=== PATIENT | male | born 1980 | race Caucasian/White ===

== ENCOUNTER 2021-02-16 17:24 | Emergency (ER) | payer OTHER, SELFPAY ==
[2021-02-16 17:44] VITALS: BP 105/69; PULSE 84; RESP 18; TEMP 37.2; O2SAT 97; BMI 18.7
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
[2021-02-16 18:17] VITALS: BP 96/64; PULSE 84; RESP 18; O2SAT 97
[2021-02-16 18:21] LABS: Basophils % 0.3 %; Eosinophils % 0.1 %; Hemoglobin 12.4 g/dL (11.7-16.6); Lymphocytes # 1.2 10^3/uL (0.8-4.8); Mean Corpuscular HGB Conc 32.6 g/dL (30.0-36.0); Mean Corpuscular Hemoglobin 28.7 pg (28.0-34.0); Monocytes # 0.7 10^3/uL (0.2-0.9); Monocytes % 5.7 %; Neutrophils # 11.01 10^3/uL (1.8-7.7); Neutrophils % 84.4 %; Nucleated Red Blood Cells % 0 %; Platelet Count 196 10^3/cmm (130-400); Red Blood Count 4.32 10^6/uL (4.1-5.3); Red Cell Distribution Width 12.9 % (12.1-15.1)
[2021-02-16 18:36] LABS: INR 1.05 (0.8-1.2)
[2021-02-16 18:42] LABS: Alanine Aminotransferase 16 U/L (0-41); Albumin Level 4.4 g/dL (3.5-5.2); Alkaline Phosphatase 57 IU/L (40-130); Anion Gap 12.8 (5-19); Aspartate Amino Transferase 23 U/L (0-40); Blood Urea Nitrogen 11 mg/dL (6-20); Calcium 8.3 mg/dL (8.5-10.5); Carbon Dioxide 28 mmol/L (22-29); Chloride 103 mmol/L (98-107); Globulin 2.1 g/dL (1.3-4.6); Glomerular Filtration Rate 92.5 mL/min (90-130); Glucose 92 mg/dL (65-115); Osmolality Calculated 289 mOsm/kg (285-295); Potassium 3.8 mmol/L (3.5-5.1); Sodium 140 mmol/L (136-145); Total Bilirubin 0.2 mg/dL (0.15-1.2); Total Protein 6.5 g/dL (6.6-8.7)
--- NOTE | 2021-02-16 19:11 | XRR_ITS ---
PROCEDURE INFORMATION: Exam: XR Right Hip Exam date and time: 02/16/2021 7:11 PM Age: 40 years old Clinical indication: Pelvic pain; Additional info: ? Fracture, trauma TECHNIQUE: Imaging protocol: XR Right hip. Views: 1 view hip with pelvis when performed. COMPARISON: CR (LOW EXM, ) 02/16/2021 6:20 PM FINDINGS: Bones/joints: Unremarkable. No acute fracture. No fracture identified in the right pubic symphysis. Soft tissues: Unremarkable. XR/XR hip RT 2-3V wo/w pel* [id number] IMPRESSION: No acute findings. Radiation Dose CTDIVOL = (mGy): DLP = (mGy-cm)
--- NOTE | 2021-02-16 19:11 | XRR_ITS ---
PROCEDURE INFORMATION: Exam: XR Right Tibia and Fibula Exam date and time: 02/16/2021 7:11 PM Age: 40 years old Clinical indication: Pain; Lower leg; Right; Additional info: Trauma, pain, abnormal XR TECHNIQUE: Imaging protocol: XR Right tibia and fibula. Views: 2 views. COMPARISON: No relevant prior studies available. FINDINGS: Bones/joints: Displaced, depressed comminuted fracture in the lateral tibial plateau. Significant step-off in the articular surface. The other bones are intact. Soft tissues: Normal. XR/XR tibia fibula RT 2V [id number] IMPRESSION: 1. Comminuted displaced lateral tibial plateau fracture. Radiation Dose CTDIVOL = (mGy): DLP = (mGy-cm)
--- NOTE | 2021-02-16 19:11 | XRR_ITS ---
PROCEDURE INFORMATION: Exam: XR Right Knee Exam date and time: 02/16/2021 7:11 PM Age: 40 years old Clinical indication: Pain; Knee; Right; Additional info: Trauma, pain TECHNIQUE: Imaging protocol: XR Right knee. Views: 3 views. COMPARISON: CR (LOW EXM, ) 02/16/2021 6:20 PM FINDINGS: Bones/joints: Comminuted, depressed, and significantly displaced fracture through the lateral right tibial plateau with extension into the metaphysis. Significant cortical step-off along the articular surface. Right knee lipohemarthrosis. Soft tissues: Normal. XR/XR knee RT 3V* [id number] IMPRESSION: 1. Comminuted displaced lateral tibial plateau fracture. Radiation Dose CTDIVOL = (mGy): DLP = (mGy-cm)
[2021-02-16 19:40] VITALS: BP 104/55; PULSE 75; RESP 18; O2SAT 92
[2021-02-16 19:42] VITALS: RESP 18; O2SAT 100
[2021-02-16] MEDS: morphine 4 mg/mL SDV 1 mL IVP (19:42)
[2021-02-16 21:22] VITALS: BP 112/63; PULSE 80; RESP 18; O2SAT 96
[2021-02-16 21:40] VITALS: RESP 20; O2SAT 97
[2021-02-16] MEDS: oxyCODONE 5 mg IR Tab/Cap PO (21:40)
== END 2021-02-16 22:43 ==
PROVIDERS: Emergency Medicine; Emergency Provider Emergency Medicine
DX: S82.141A Displaced bicondylar fracture of right tibia, initial encounter for closed fracture (principal); S81.811A Laceration without foreign body, right lower leg, initial encounter; S80.811A Abrasion, right lower leg, initial encounter; V29.9XXA Motorcycle rider (driver) (passenger) injured in unspecified traffic accident, initial encounter
CPT/HCPCS: 29530; 73502; 73552; 73562; 73590; 80053; 85025; 85610; 96374; 99285; J2270

== ENCOUNTER 2022-01-07 09:30 | Emergency (ER) | payer OTHER, SELFPAY ==
[2022-01-07 09:38] VITALS: BP 143/89; PULSE 85; RESP 17; TEMP 36.6; O2SAT 99
--- NOTE | 2022-01-07 09:48 | PC.NURSE ---
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 reports today started having discomfort of his right eye. attempted to flush eye and utilized a wet qtip to remove any foreign bodies. reports he felt like the qtip was grabbing onto something. reports itchy/scratchy pain to right eye. denies any pain yesterday. pt denies N/V, fevers, or other symptoms. sclera to right eye white. no erythema or drainage visualized. small spot visualized medial to pupil of right eye, pt reports that is where the discomfort is. Pupil round and reactive to light.
[2022-01-07] MEDS: fluorescein 1 mg Strip EYE-BOTH (10:00)
[2022-01-07] MEDS: tetracaine 0.5% Op Soln 4 mL Btl 1 DROP EYE-BOTH (10:00)
--- NOTE | 2022-01-07 10:13 | ED_ITS ---
HPI - Eye Problem General: Chief complaint: Eye Problems Stated complaint: something in eyeball Time Seen by Provider: 01/07/22 09:44 History of Present Illness: This patient is a 41-year-old male presenting with right eye irritation. 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 He had some irritation in the eye and washed it out yesterday afternoon. When he woke up this morning it felt more irritated and he came into the ER. He does not wear contacts. He does wear glasses. He has never had any problems with his eyes. 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 He is up-to-date on tetanus. Associated symptoms: Denies headache(s) Review of Systems Eyes: Reports: eye discomfort Neuro: Denies: headache(s) Physical Exam Const: COMMON NORMALS: no acute distress, patient oriented x3, no limitations and alert GENERAL APPEARANCE: cooperative and comfortable HENMT: HEAD & SCALP: normal to inspection FACE & SINUS: normal facial exam Eye: COMMON NORMALS: Equal, round and reactive pupils present CONJUNCTIVA: Yes conjunctival abnormal (Mild injection of the right conjunctiva) and Yes other (Very small foreign body medial conjunctiva) CORNEA: Yes corneas normal and fluorescein used PUPIL: Yes Equal, round and reactive pupils present and Yes Pupil accommodation reflex normal Resp: COMMON NORMALS: normal respiratory effort Neuro: COMMON NORMALS: patient oriented x3, moves all extremities, no focal motor deficits and no sensory deficits noted SENSORIUM/ORIENTATION: Yes alert Psych: COMMON NORMALS: mental status grossly normal, cooperative and normal affect Skin: COMMON NORMALS: no rashes or lesions noted and turgor normal GENERAL SKIN EXAM: no rashes or lesions noted and turgor normal Course Vital Signs: Vital signs: Vital Signs Temperature 97.9 F 01/07/22 09:38 Pulse Rate 85 01/07/22 09:38 Respiratory Rate 17 01/07/22 09:38 Blood Pressure 143/89 01/07/22 09:38 Pulse Oximetry 99 01/07/22 09:38 Oxygen Delivery Me thod 01/07/22 09:38 MDM - Eye Problem Medical Decision Making Small foreign body on the medial aspect of the conjunctiva. No corneal defect. No vision defect. No discharge. Normal lids. 18-gauge needle used to remove the foreign body. There was a small amount of bleeding in the conjunctiva. Tetracaine and fluorescein used for exam. Counseled patient to follow-up with eye doctor if not completely better in 2 to 3 days. Return precautions di scussed as well. Discharge Plan Discharge Patient Disposition: Home Clinical Impression: Acute foreign body of right conjunctiva Condition: Stable Prescriptions: New gentamicin 0.3 % (3 mg/gram) ointment 1 applic ophthalmic (eye) Q8H 3 Days Qty: 3.5 0RF Discharge Orders: Discharge ED (Routine); Ordered 01/07/22 Ordered By: Juany Del Cid Discharge Diet: Usual diet Discharge Activity: Increase activity as tolerated Patient Instructions: Opioid Safety, Pain Management Activity Restrictions/Additional Instructions: Return to the ER if new or worse symptoms. Follow-up with an eye doctor in 2 to 3 days if not completely improved. Use the antibiotic eye ointment as prescribed. You may also use ibuprofen orally for pain and lubricating e yedrops. Coding Level of Care Code ED Die Presser for Ashley Denton
[2022-01-07] MEDS: erythromycin Op Oint 1 gm 1 APPLIC EYE-RIGHT (10:33)
[2022-01-07 10:40] VITALS: BP 114/61; PULSE 82; RESP 16; O2SAT 98
== END 2022-01-07 10:42 | disposition home or self-care (01) ==
PROVIDERS: Emergency Provider Emergency Medicine
DX: T15.11XA Foreign body in conjunctival sac, right eye, initial encounter (principal); X58.XXXA Exposure to other specified factors, initial encounter
CPT/HCPCS: 65205; 99283

== ENCOUNTER 2023-04-23 06:48 | Outpatient (CLI) | payer OTHER, SELFPAY ==
--- NOTE | 2023-04-23 | US_ITS ---
WS: [id number] TESTICULAR ULTRASOUND HISTORY: PAIN COMPARISON: None available. TECHNIQUE: Real-time and color Doppler imaging or utilized to perform a testicular ultrasound. Right testicle: 3.5 cm x 2.3 cm x 2.8 cm. RIGHT testicle is measuring slightly smaller than the LEFT. There is variable echogenicity within the RIGHT testicle with normal vascularity. No mass identified. Normal color Doppler is present throughout. Systolic and diastolic velocities are both present. No significant hydrocele. Right epididymis: Normal epididymis with no increased vascularity. Left testicle: 4.3 cm x 3.5 cm x 3.3 cm. Normal size and echogenicity. No mass or torsion. Normal color Doppler is present throughout. Systolic and diastolic velocities are both present. No significant hydrocele. Left epididymis: Spermatocele within the LEFT epididymis measures 5 x 6 x 5 mm. IMPRESSION: 1. No testicular mass or acute torsion. 2. RIGHT testicle is measuring slightly smaller than the LEFT and there is variable echogenicity thr oughout. No acute process at this time. Due to patient's history there may be intermittent torsion wh ich resolved spontaneously or prior episodes of infection.
== END 2023-04-23 06:49 | disposition home or self-care (01) ==
LOC: RAD 06:48
PROVIDERS: Visit Provider Nurse Practitioner
DX: N50.82 Scrotal pain (principal)
CPT/HCPCS: 76870

== ENCOUNTER → 2023-12-09 15:37 | Outpatient (BNVA) | payer OTHER, SELFPAY | PROVIDERS: Visit Provider Nurse Practitioner | DX: T84.84XA Pain due to internal orthopedic prosthetic devices, implants and grafts, initial encounter (principal); M17.11 Unilateral primary osteoarthritis, right knee; S82.1 Fracture of upper end of tibia; X58.XXXA Exposure to other specified factors, initial encounter; X58.XXXS Exposure to other specified factors, sequela | CPT/HCPCS: 73560; 73565; 99204 ==

== ENCOUNTER 2023-12-12 13:09 | Emergency (ER) | payer OTHER, SELFPAY ==
--- NOTE | 2023-12-12 13:07 | ECG_ITS ---
[facility] Test Date: 2023-12-12 Pat Name: Sukh Barkley Department: Room: Gender: Male Medical Staff Specialist: : 1980 Requested By: Mine Kelly Order Number: [id number] Binta MD: David Escobar M.D. Measurements Intervals [place] Rate: 80 P: 84 MT: 141 QRS: 76 QRSD: 91 T: 71 QT: 348 QTc: 403 Interpretive Statements SINUS RHYTHM WITH SINUS ARRHYTHMIA SEPTAL MYOCARDIAL INFARCTION , OF INDETERMINATE AGE [40+ ms Q WAVE IN V1/V2] No previous ECG available for comparison Electronically Signed On 12-12-2023 16:34:49 CDT by David Escobar M.D. [email or web address]
[2023-12-12 13:10] VITALS: BP 113/73; PULSE 83; RESP 17; TEMP 36.7; O2SAT 99; BMI 16.9
--- NOTE | 2023-12-12 13:12 | XR_ITS ---
WS: [id number] Portable AP upright chest, 12/12/2023 Clinical Data: cp Comparison: None. Findings: No masses or effusions are seen. There is a 2.0 cm density in the left upper lobe overlyin g the left sixth rib which could represent a nodule, atelectasis or minimal pneumonia. The diaphragms are flattened. The heart is normal. The pulmonary vascularity is not increased. No pneumonia or pneu mothorax is seen. Monitor leads are on the chest wall. XR/XR chest 1V portable [id number] Impression: 1. Left upper lobe 2.0 cm density which may represent a nodule, atelectasis or early pneumonia and recommend either comparison with previous chest x-rays, obt aining a repeat x-ray in 7 to [address] chest. 2. Hyperinflation.
--- NOTE | 2023-12-12 13:45 | ED_ITS ---
HPI - Chest Pain 2 General: Chief Complaint: Chest Pain Stated Complaint: chest pain, sweating, left arm numbness Time Seen by Provider: 12/12/23 13:39 History of Present Illness: 43-year-old male presents to the emergen cy room with complaint of chest discomfort. He is intermittently had chest pain for the last for 4-5 days associated with some swelling left arm numbness today, and some diaphoresis. He has not noticed anything that exacerbates or relieves it. He has some associated neck pain but does not feel like the pain radiates from his neck down into his arms. No known history of coronary artery disease he had some palpitations while he was in the [employer] and they were going to get it evaluated but he never completed the workup. He is not on any medications he does not smoke does not have hypertension he is not diabetic Associated symptoms: Deny abdominal pain, dyspnea or fever(s) Related Data Home Medications Medication Instructions Recorded Confirmed multivitamin 1 tab PO DAILY 12/12/23 12/12/23 Previous Rx's Medication Instructions Recorded aspirin 81 mg tablet,delayed 81 mg PO DAILY #30 tabs 12/12/23 release levofloxacin 750 mg tablet 750 mg PO DAILY 7 days #7 tabs 12/12/23 Allergies Allergy/AdvReac Type Severity Reaction Status Date / Time Sulfa (Sulfonamide Allergy ALGY-Hives Verified 12/09/23 15:50 Antibiotics) Review of Systems 2 Const: Denies: fever(s) or chills Card: Denies: chest pain Resp: Denies: dyspnea GI: Denies: abdominal pain : Denies: dysuria, urinary frequency or urinary urgency Musc: Denies: neck pain or back pain Skin/Breast: Denies: rash PFSH ED 2 PFSH: Social History Smoking and tobacco/nicotine status: former use of tobacco/nicotine Physical Exam 2 Const: COMMON NORMALS: no acute distress GENERAL APPEARANCE: cooperative and comfortable ORIENTATION/CONSCIOUSNESS: Yes awake, Yes oriented to person, Yes oriented to place and Yes oriented to time HENMT: COMMON NORMALS: normocephalic, atraumatic and hearing grossly normal bilaterally HEAD & SCALP: normocephalic and atraumatic Resp: COMMON NORMALS: normal respiratory effort, No retractions, No use of accessory muscles and clear to auscultation bilaterally AUSCULTATION: clear to auscultation bilaterally Cardio: COMMON NORMALS: regular rate, regular rhythm and No murmurs present (Cardio) RATE: regular rate RHYTHM: regular rhythm GI: COMMON NORMALS: Soft to palpation and No hepatosplenomegaly present A USCULTATION: Yes normoactive bowel sounds PALPATION: Yes Soft to palpation, No Tenderness to palpation present (GI), No Guarding due to palpation present (GI) and Yes No hepatosplenomegaly present Extremity: COMMON NORMALS: normal to inspection, capillary refill normal, no clubbing, cyanosis or edema, no calf tenderness and no pedal edema Neuro: SENSORIUM/ORIENTATION: Yes oriented to person, Yes oriented to place and Yes oriented to time Skin: COMMON NORMALS: no rashes or lesions noted GENERAL SKIN EXAM: no rashes or lesions noted Course 2 Vital Signs: Vital signs: Vital Signs Temperature 98.0 F 12/12/23 13:10 Pulse Rate 75 12/12/23 16:11 Respiratory Rate 17 12/12/23 13:10 Blood Pressure 99/64 12/12/23 16:11 Pulse Oximetry 98 12/12/23 16:11 Oxygen Delivery Me thod Room Air 12/12/23 16:11 MDM - Chest Pain Medical Decision Making EKG did not show any acute changes cardiac enzymes trended and negative. Questionable area in the right upper lobe. His symptoms seem more pleuritic in nature is worse when he takes a deep breath. Will set him up for an outpatient stress test additionally we will change him from Zithromax to Levaquin. Have him follow-up with cardiology. Discussed with patient he should have a follow- up chest x-ray document resolution of this area or if it is persisting he will need a CBC. Lab Data 12/12/23 13:45 12/12/23 13:45 Radiology Impressions Chest X-Ray 12/12/23 13:12 Impression: 1. Left upper lobe 2.0 cm density which may represent a nodule, atelectasis or early pneumonia and recommend either comparison with previous chest x-rays, obtaining a repeat x-ray in 7 to [address] chest. 2. Hyperinflation. Laboratory Results WBC 3.68 10^3/uL (3.29-11.43) 12/12/23 13:45 RBC 4.33 10^6/uL (3.85-5.65) 12/12/23 13:45 Hgb 12.90 g/dL (11.27-16.99) 12/12/23 13:45 Hct 38.0 % (37-53) 12/12/23 13:45 MCV 87.8 fl (82-101) 12/12/23 13:45 MCH 29.8 pg (27-33) 12/12/23 13:45 MCHC 33.9 g/dL (30-55) 12/12/23 13:45 RDW 12.4 % (12.1-15.1) 12/12/23 13:45 Plt Count 192 10^3/cmm (157-399) 12/12/23 13:45 MPV 9.0 fL (7.4-10.4) 12/12/23 13:45 Neut % (Auto) 58.6 % 12/12/23 13:45 Lymph % (Auto) 31.5 % 12/12/23 13:45 [place] % (Auto) 7.1 % 12/12/23 13:45 Eos % (Auto) 1.4 % 12/12/23 13:45 Baso % (Auto) 1.1 % 12/12/23 13:45 Neut # (Auto) 2.16 10^3/uL (1.8-7.7) 12/12/23 13:45 Lymph # (Auto) 1.2 10^3/uL (0.8-4.8) 12/12/23 13:45 [place] # (Auto) 0.3 10^3/uL (0.2-0.9) 12/12/23 13:45 Eos # (Auto) 0.1 10^3/uL (0.0-0.8) 12/12/23 13:45 Baso # (Auto) 0.0 10^3/uL (0.0-0.1) 12/12/23 13:45 Nucleated RBC % (auto) 0 % 12/12/23 13:45 Nucleated RBCs # 0.0 /100WBC 12/12/23 13:45 Sodium 137 mmol/L (136-145) 12/12/23 13:45 Potassium 4.0 mmol/L (3.5-5.1) 12/12/23 13:45 Chloride 99 mmol/L (98-107) 12/12/23 13:45 Carbon Dioxide 28 mmol/L (22-29) 12/12/23 13:45 Anion Gap 14.0 (5-19) 12/12/23 13:45 BUN 16 mg/dL (6-20) 12/12/23 13:45 Creatinine 0.9 mg/dL (0.7-1.2) 12/12/23 13:45 GFR Calculation 91.3 mL/min (90-130) 12/12/23 13:45 Glucose 101 mg/dL (65-115) 12/12/23 13:45 Calculated Osmolality 285 mOsm/kg (285-295) 12/12/23 13:45 Calcium 9.2 mg/dL (8.5-10.5) 12/12/23 13:45 Total Bilirubin 0.4 mg/dL (0.15-1.2) 12/12/23 13:45 AST 15 U/L (0-40) 12/12/23 13:45 ALT 14 U/L (0-41) 12/12/23 13:45 Alkaline Phosphatase 56 U/L (40-130) 12/12/23 13:45 Troponin T Baseline < 6 ng/L (0-15) 12/12/23 13:45 Troponin T 120 Minute 6.00 ng/L (0-15) 12/12/23 15:44 Delta Troponin T 0.54928 ABS# (0-10) 12/12/23 15:44 Total Protein 6.9 g/dL (6.6-8.7) 12/12/23 13:45 Albumin 4.8 g/dL (3.5-5.2) 12/12/23 13:45 Globulin 2.1 g/dL (1.3-4.6) 12/12/23 13:45 Lipase 50 U/L (13-60) 12/12/23 13:45 All radiology interpretation(s) finalized by discharge Discharge Plan Discharge Patient Disposition: Home Clinical Impression: Atypical chest pain Condition: Stable Prescriptions: New levofloxacin 750 mg tablet 750 mg PO DAILY 7 Days Qty: 7 0RF aspirin 81 mg tablet,delayed release (DR/EC) 81 mg PO DAILY Qty: 30 0RF Discontinued azithromycin [Zithromax Z-Armani] 250 mg Tablet 0 mg PO .COMPLEX Rx Instructions: For 250 mg dose pack: take 500 mg today (day 1), then 250 mg for 4 days (days 2-5) No Action multivitamin Tablet 1 tab PO DAILY Discharge Orders: Discharge ED (Routine); Ordered 12/12/23 Ordered By: [place] Discharge Diet: Usual diet Discharge Activity: Increase activity as tolerated Patient Instructions: Opioid Safety, Pain Management Activity Restrictions/Additional Instructions: Thank you for choosing [facility] for your healthcare needs today. It is very important that you follow up as instructed or that you return to the Emergency Department should you have concerns or if your condition changes or worsens in any way. You are seen emergency room with complaint of chest discomfort chest x-ray shows mild right upper lobe changes. Recommend you stopping the Zithromax and changed to Levaquin 500 milligrams once a day. You should have a follow-up chest x-ray done through your primary care doctor. Cardiac enzymes and EKGs did not show any significant abnormalities. Will set you up for outpatient stress test. Coding Level of Care Code ED Oil Speculator for Ashley Denton
[2023-12-12 14:00] LABS: Basophils % 1.1 %; Eosinophils # 0.1 10^3/uL (0.0-0.8); Eosinophils % 1.4 %; Lymphocytes # 1.2 10^3/uL (0.8-4.8); Lymphocytes % 31.5 %; Mean Corpuscular HGB Conc 33.9 g/dL (30-55); Mean Corpuscular Hemoglobin 29.8 pg (27-33); Mean Corpuscular Volume 87.8 fl (82-101); Monocytes # 0.3 10^3/uL (0.2-0.9); Monocytes % 7.1 %; Neutrophils # 2.16 10^3/uL (1.8-7.7); Neutrophils % 58.6 %; Nucleated Red Blood Cells % 0 %; Platelet Count 192 10^3/cmm (157-399); Red Blood Count 4.33 10^6/uL (3.85-5.65); Red Cell Distribution Width 12.4 % (12.1-15.1); White Blood Count 3.68 10^3/uL (3.29-11.43)
[2023-12-12 14:09] LABS: Troponin(5th) Baseline < 6 ng/L (0-15)
[2023-12-12 14:17] LABS: Alanine Aminotransferase 14 U/L (0-41); Albumin Level 4.8 g/dL (3.5-5.2); Alkaline Phosphatase 56 U/L (40-130); Aspartate Amino Transferase 15 U/L (0-40); Blood Urea Nitrogen 16 mg/dL (6-20); Calcium 9.2 mg/dL (8.5-10.5); Carbon Dioxide 28 mmol/L (22-29); Chloride 99 mmol/L (98-107); Creatinine Clr Calc Pharmacy 89.7735; Globulin 2.1 g/dL (1.3-4.6); Glomerular Filtration Rate 91.3 mL/min (90-130); Glucose 101 mg/dL (65-115); Lipase 50 U/L (13-60); Osmolality Calculated 285 mOsm/kg (285-295); Sodium 137 mmol/L (136-145); Total Bilirubin 0.4 mg/dL (0.15-1.2); Total Protein 6.9 g/dL (6.6-8.7)
--- NOTE | 2023-12-12 15:12 | ECG_ITS ---
[facility] Test Date: 2023-12-12 Pat Name: Sukh Barkley Department: Room: Gender: Male Labeling Machine Operator: : 1980 Requested By: Mine Kelly Order Number: [id number] Binta MD: David Escobar M.D. Measurements Intervals [place] Rate: 68 P: 85 AR: 154 QRS: 78 QRSD: 94 T: 78 QT: 369 QTc: 394 Interpretive Statements SINUS RHYTHM WITH SINUS ARRHYTHMIA SEPTAL MYOCARDIAL INFARCTION , PROBABLY OLD [40+ ms Q WAVE IN V1/V2] Compared to ECG 12/12/2023 13:07:54 No significant changes Electronically Signed On 12-12-2023 16:36:13 CDT by David Escobar M.D. [id number]
[2023-12-12 16:09] LABS: Troponin 5 2HR Delta 0.00001 ABS# (0-10)
[2023-12-12 16:11] VITALS: BP 99/64; PULSE 75; O2SAT 98
--- NOTE | 2023-12-13 10:44 | PC.SOCIAL ---
Stress test orders faxed to centralized scheduling at this time.
== END 2023-12-12 17:28 | disposition home or self-care (01) ==
PROVIDERS: Emergency Medicine; Emergency Provider Family Medicine
DX: R07.89 Other chest pain (principal); Z87.891 Personal history of nicotine dependence
CPT/HCPCS: 36415; 71045; 80053; 83690; 84484; 85025; 93005; 99285

== ENCOUNTER → 2024-12-21 11:05 | Outpatient (BNVA) | payer OTHER, SELFPAY | PROVIDERS: Visit Provider Nurse Practitioner Family | DX: L57.8 Other skin changes due to chronic exposure to nonionizing radiation (principal); D18.01 Hemangioma of skin and subcutaneous tissue | CPT/HCPCS: 99203 ==